=== PATIENT | male | born 1980 | race African-American/Black ===

== ENCOUNTER 2018-08-03 22:25 | Emergency (ER) | payer SELFPAY ==
[~2018-08-03] VITALS: Ht 188 cm; Wt 100.0 kg
[2018-08-04] MEDS ORDERED: MOTRIN800 MG PO (00:12)
[2018-08-04] MEDS ORDERED: ORPHENADRINE100 MG PO (00:12)
[2018-08-04 00:15] VITALS: BP 141/80
== END 2018-08-04 00:18 | disposition home or self-care (01) | DRG 552 ==
LOC: ED 22:25
DX: M54.17 Radiculopathy, lumbosacral region (principal); M54.5 Low back pain; M62.830 Muscle spasm of back; X50.0XXA Overexertion from strenuous movement or load, initial encounter; Y92.009 Unspecified place in unspecified non-institutional (private) residence as the place of occurrence of the external cause

== ENCOUNTER 2018-08-21 06:30 | Emergency (ER) | payer SELFPAY ==
[~2018-08-21] VITALS: Ht 188 cm; Wt 91.0 kg
[~2018-08-21 06:30] MED LIST: MOTRIN800 MG PO; ORPHENADRINE100 MG PO
[2018-08-21] MEDS ORDERED: PREDNISONE50 MG PO (07:17)
[2018-08-21] MEDS ORDERED: CYCLOBENZAPR5 MG PO (07:17)
[2018-08-21 07:37] VITALS: BP 126/82
== END 2018-08-21 07:45 | disposition home or self-care (01) | DRG 552 ==
LOC: ED 06:30
DX: M54.5 Low back pain (principal)